=== PATIENT | female | born 1945 | race Caucasian/White ===

== ENCOUNTER 2023-07-06 08:09 | Outpatient (OUT) | payer MEDICARE, SELFPAY ==
--- NOTE | 2023-07-06 08:27 | CA_ITS ---
Patient: BLAISE JARA Exam Date: 07/06/2023 : 1945 Gender:F Ordering : CRYSTAL COOL Admission #: [id number] Family : Order #: [id number] CLICK HERE TO VIEW EXAM ECHOCARDIOGRAM REPORT PROCEDURE: CA ECHO DOPPLER COMPLETE INDICATIONS: pre op COMPARISON: None. DESCRIPTION: COMPLETE ECHOCARDIOGRAM Real-time transthoracic echocardiography with 2D, M-mode, spectral and color flow Doppler performed. QUALITY: Technical quality was good. LEFT VENTRICLE: Normal chamber size. Normal left ventricular wall thickness. LV EF: Global left ventricular systolic function is normal. Calculated left ventricular ejection fraction is 59% no significant wall motion abnormalities. DIASTOLIC: Unable to assess degree of diastolic dysfunction. ATRIAL SEPTUM: Inadequately seen. LEFT ATRIUM: Severe dilatation. RIGHT ATRIUM: Severe dilatation. RIGHT VENTRICLE: Normal chamber size. Normal right ventricular systolic function. TRICUSPID VALVE: Normal mobility and thickness. Moderate to severe regurgitation. Moderate pulmonary hypertension. RVSP 59mmHG MITRAL VALVE: Normal mobility and thickness. No evidence of mitral valve stenosis. Mild mitral annular calcification. Moderate mitral regurgitation. AORTIC VALVE: Normal trileaflet appearance. Moderately calcified aortic valve. Doppler velocity suggests no significant aortic valve stenosis. DVI and aortic valve area suggests mild aortic stenosis. No aortic regurgitation. AORTIC ROOT: Normal diameter and appearance. PULMONIC VALVE: Normal thickness and mobility. No stenosis. No regurgitation. PERICARDIUM: No evidence of pericardial effusion. IVC: Normal size with partial collapse. CONCLUSION: 1. Global left ventricular systolic function is normal; visually estimated ejection fraction is 60 to 65% 2. The right ventricle is normal size and systolic function 3. Severe biatrial enlargement 4. Moderate to severe tricuspid regurgitation 5. Moderately elevated right ventricular systolic pressure; RVSP 59 mmHg 6. Moderate mitral regurgitation 7. Mild aortic valve stenosis Adult Echocardiography Procedure Report Left Ventricle LVEDD (3.7 - 5.6 cm): 4.75 cm LVESD (2.2 - 4.0 cm): 3.40 cm LVIVS thickness (0.6 - 1.2 cm): 1.04 cm LVPW thickness (0.5 - 1.0 cm): 1.03 cm e': 0.14 m/s E - e': 9.16 LVOT Max Gradient: 1.58 mm[Hg] LVOT Area (cm2): 0.63 m/s Peak Velocity (LVOT): 0.63 m/s Mean Velocity (LVOT): 0.41 m/s LVOT Diameter 1.94 cm Left Ventricular Ejection Fraction: 59.28 % Left Atrium LA Volume Index (2D A2C): 66.92 ml/m2 Left Atrium Systolic Dimension: 4.57 cm Mitral Valve MV E to A Ratio: 3.16 Mitral Valve A-Wave Peak Velocity: 0.41 m/s Mitral Valve E-Wave Peak Velocity: 1.30 m/s Right Ventricle RV Internal Diastolic Dimension: 3.27 cm Aorta AO Root Diam: 3.04 cm Aortic Valve AoV Area (Peak Kameron): 1.18 cm2, 1.18 cm2 AoV Area (VTI): 1.29 cm2, 1.29 cm2 Peak Velocity(Antegrade Flow): 1.58 m/s Peak Gradient(Antegrade Flow): 9.94 mm[Hg] Mean Velocity(Antegrade Flow): 1.08 m/s Mean Gradient(Antegrade Flow): 5.16 mm[Hg] Velocity Time Integral: 30.60 cm Tricuspid Valve Peak Velocity (Regurgitant Flow): 3.17 m/s, 3.30 m/s, 3.57 m/s, 3.66 m/s Pulmonic Valve Mean Gradient: 1.81 mm[Hg], 1.90 mm[Hg] Mean Velocity: 0.63 m/s, 0.64 m/s Peak Velocity: 0.96 m/s, 0.93 m/s Peak Gradient: 3.55 mm[Hg], 3.86 mm[Hg], 3.43 mm[Hg] Right Atrium Right Atrium Systolic Pressure: 89.01 ml, 89.01 ml Dictated by: Xuan Alex M.D. on 07/06/2023 at 14:27 Approved by: Xuan Alex M.D. on 07/06/2023 at 14:34
--- NOTE | 2023-07-06 08:30 | NM_ITS ---
Patient: BLAISE JARA Exam Date: 07/06/2023 : 1945 Gender:F Ordering : Non-Staff Physician Admission #: [id number] Family : DR Gustabo Cook . Order #: [id number] CLICK HERE TO VIEW EXAM RADIOLOGY REPORT PROCEDURE: NM JAZLYN PERF SPECT REST STR COMPARISON: None. INDICATIONS: PRE PROCEDURE CARDIOVASCULAR EXAM TECHNIQUE: Exam Description: Stress/Rest one day protocol gated SPECT Rest Imagin.2 mCi Tc-99m Cardiolite IV on 07/06/2023 Stress Imaging 29.8 mCi Tc-99m Cardiolite IV on 07/06/2023 Exercise Protocol: 0.4 mg Lexiscan given IV Heart Rate (bpm): Rest: 93 Max: 116 PMHR: 80 Blood Pressure: Rest: 145/86 Max: 168/114 Symptoms: Rest and peak stress ECG findings were normal and the exercise portion of the study was normal per attending physician Dr. Alex . For more details please see separate cardiac stress test report. FINDINGS: QUALITY OF STUDY: Good. PERFUSION DEFECT: LOCATION: Mid-anterior. SIZE: Small (1-2 segments). SEVERITY: Mild. TYPE: Persistent. WALL MOTION: Normal. LV SIZE: Normal. 44 mL. TID / TCD: None; 0.8 LVEF: Normal. Calculated EF 77%. SUMMARY: Myocardial perfusion imaging study has ABNORMAL findings. CONCLUSION: 1. Small size mild severity fixed defect in the mid anterior wall possibly breast attenuation artifact. 2. No reversible ischemia 3. Normal exercise test Dictated by: River Schafer MD on 07/08/2023 at 07:59 Approved by: River Schafer MD on 07/08/2023 at 08:01
[2023-07-06] MEDS: REGADENOSON 0.4 MG/5 ML SYRINGE IV (10:55)
--- NOTE | 2023-07-07 | PCN_ITS ---
CARDIAC STRESS TEST Requesting Physician:? Procedure Date:? 07/07/2023 INDICATION:? Preoperative evaluation. METHOD:? After risks, benefits and alternatives were explained, written informed consent was obtained.? The patient was brought to the stress lab in a resting and fasting state.? She was connected to the appropriate hemodynamic and electrocardiographic monitoring. Lexiscan 0.4 mg was infused intravenously.? Technetium Cardiolite was administered per protocol.? She was transferred to the nuclear lab in a stable state for imaging.? There were no complications.? STRESS TEST INFORMATION:? HEMODYNAMICS:? Resting heart rate was 93 beats per minute, increasing to a maximum of 110 beats per minute. Resting blood pressure was 145/86, with a maximum of 168/114.? The patient reported no symptoms. ELECTROCARDIOGRAPHY:? Resting EKG:? Atrial fibrillation, 85 beats per minute, RSR pattern in V1, non- specific ST-T wave changes.? Abnormal resting EKG. During infusion and recovery:? No significant ST-T wave changes are noted.? No significant arrhythmias are seen.? FINAL IMPRESSIONS: 1.? No ischemic EKG changes seen on Lexiscan Pharmacological Stress Test. 2.? Nuclear images are to be read, interpreted and reported in a separate dictation. RAVI
== END 2023-07-06 08:10 | disposition home or self-care (01) ==
PROVIDERS: PCP Family Medicine
DX: Z01.818 Encounter for other preprocedural examination (principal)
CPT/HCPCS: 78452; 93017; 93306; A9500; J2785

== ENCOUNTER 2023-08-10 13:49 | Outpatient (OUT) | payer MEDICARE, SELFPAY ==
[2023-08-10 14:28] LABS: Anion Gap 11.3; BUN Creatinine Ratio 22.4; Calcium 8.8 mg/dL (8.5-10.1); Carbon Dioxide 31.5 mmol/L (21.0-32.0); Chloride 97 mmol/L (98-107); Estimated GFR (African America >60 (>=60); Estimated GFR (Non-African Ame 55 (>=60); Glucose 95 mg/dL (74-106); Potassium 3.8 mmol/L (3.5-5.1); Sodium 136 mmol/L (136-145)
== END 2023-08-10 13:50 | disposition home or self-care (01) ==
LOC: LAB 13:49
PROVIDERS: PCP Family Medicine; Visit Provider Internal Medicine Cardiovascular Disease
DX: I34.0 Nonrheumatic mitral (valve) insufficiency (principal)
CPT/HCPCS: 36415; 80048

== ENCOUNTER 2023-10-28 12:56 | Outpatient (OUT) | payer MEDICARE, SELFPAY ==
--- OUTSIDE RECORDS SUMMARY | 2023-10-28 13:18 | XMS_ITS | CCD ---
Author Name Unknown Address [address] [place] [address] Organization [facility] Care Team Providers Care Material Distributor Name Role Phone REQUEST, DR NONE LISTED Primary Care Unavaila jeimy WILSON, DR RADER Admitting Unavailable KATIE, DR RADER Consulting Unavailable KATIE, DR RADER Attending Unavailable HAY, DR VALENTINO Consulting Unavailable NEFCY, AMANDA Consulting Unavailable SISTER, JENIFFER Consulting Unavailable CRYSTAL BENTON Attending Unavailable ANGEL SERNA Attending Unavailable CRYSTAL BENTON Attending Unavailable Allergies Allergy Classification Reported Allergen(s) Allergy Type Date of Onset Reaction(s) Facility (1 source) Penicillin Drug Allergy 10-14-2022 [facility] Repository (1 source) Penicillin; Translations: [PENICILLIN G] Drug Allergy 04-13-2023 [facility] Rep[facility] Problems Problem Classification Problem Date Documented Da te Episodic/Chronic Cardiac dysrhythmias (3 sources) Unspecified atrial fibrillation; Translations: [UNSPECIFIED ATRIAL FIBRILLATION] Onset: 10-25-2022 Chronic Cardiac dysrhythmias (1 source) Tachycardia, unspecified; Translations: [TACHYCARDIA UNSPECIFIED] Onset: 10-25-2022 Episodic Congestive heart failure; nonhypertensive (5 sources) Acute combined systolic (congestive) and diastolic (congestive) heart failure; Translations: [Chronic diastolic (congestive) heart failure] Onset: 10-25-2022 Chronic Esophageal disorders (1 source) Gastro-esophageal reflux disease without esophagitis; Translations: [GERD WITHOUT ESOPHAGITIS] Onset: 10-25-2022 Chronic Essential hypertension (2 sources) Essential (primary) hypertension; Translations: [Essential (primary) hypertension] Onset: 08-01-2023 Chronic Genitourinary symptoms and ill-defined conditions (1 source) Unspecified abnormal findings in urine; Translations: [UNSPECIFIED ABNORMAL FINDINGS URINE] Onset: 10-25-2022 Episodic Heart valve disorders (2 sources) Nonrheumatic mitral (valve) insufficiency; Translations: [Nonrheumatic mitral (valve) insufficiency] Onset: 08-01-2023 Chronic Menopausal disorders (1 source) Hormone replacement therapy; Translations: [HORMONE REPLACEMENT THERAPY] Onset: 10-25-2022 Episodic Osteoarthritis (1 source) Unspecified osteoarthritis, unspecified site; Translations: [UNSPECIFIED OSTEOARTHRITIS UNS SITE] Onset: 10-25-2022 Chronic Other acquired deformities (1 source) Unspecified kyphosis, site unspecified; Translations: [UNS KYPHOSIS SITE UNSPECIFIED] Onset: 10-25-2022 Chronic Other aftercare (1 source) Other penitentiary (current) drug therapy; Translations: [OTH HALFWAY CURRENT DRUG THERAPY] Onset: 10-25-2022 Episodic Other aftercare (1 source) senior living (current) use of anticoagulants; Translations: [HALFWAY CURRNT USE ANTICOAGULANTS] Onset: 10-25-2022 Episodic Other lower respiratory disease (1 source) Dyspnea, unspecified; Translations: [DYSPNEA UNSPECIFIED] Onset: 10-25-2022 Episodic Other nervous system disorders (1 source) Other chronic pain; Translations: [OTHER CHRONIC PAIN] Onset: 10-25-2022 Chronic Pulmonary heart disease (2 sources) Pulmonary hypertension, unspecified; Translations: [Pulmonary hypertension, unspecified] Onset: 08-01-2023 Chronic Residual codes; unclassified (3 sources) Localized edema; Translations: [LOCALIZED EDEMA] Onset: 10-14-2022 Episodic Residual codes; unclassified (1 source) Altered mental status, unspecified; Translations: [ALTERED MENTAL STATUS UNSPECIFIED] Onset: 10-25-2022 Episodic Respiratory failure; insufficiency; arrest (adult) (1 source) Dependence on supplemental oxygen; Translations: [DEPENDENCE ON SUPPLEMENTAL OXYGEN] Onset: 10-25-2022 Chronic Screening and history of mental health and substance abuse codes (1 source) Personal history of nicotine dependence; Translations: [PERSONAL HISTORY OF NICOTINE DEPEND] Onset: 10-25-2022 Episodic Unclassified (1 source) CONTACT W/AND (SUSP) EXPOS COVID-19; Translations: [CONTACT W/AND (SUSP) EXPOS COVID-19] Onset: 10-25-2022 Unclassified (2 sources) Establish Care; Translations: [Establish Care] Onset: 05-02-2023 Results Test Name Value Interpretation Reference Range Facility 36on 08-24-2023 36 How much is her weight down based on her home scale? Just clarifying because all scales can slightly vary. Please also make sure she gets a BMP and BNP before her appt on 09/02/23. Thanks [facility] Prep for Procedureon 023 Prep for Procedure [id number] Blaise Toure 1945 Date Provider Department Transfer 08/17/2023 ANGEL TIJERINA ROXANNE Steven . No family history on file [facility] 37on 08-16-2023 37 *Increase lasix to 80mg daily (2 tablets) *Weigh yourself daily. Write down your weights. We will call you in 1 week for readings. Bring in your readings to your next appt. *Watch your fluid intake. Try to not drink more than 2 liters a day. *Eat a low sodium diet. [facility] Office Visiton 08-16-2023 Follow-up visit [id number] Blaise Toure 1945 Date Provider Department Transfer 08/16/2023 ANGEL TIJERINA [facility] No family history on file Level of Service:10155 UT OFFICE/OUTPATIENT ESTABLISHED MOD MDM 30-39 MIN Reason for Visit and Comments: Congestive Heart Failure [127] [facility] Office Visiton 08-01-2023 Follow-up visit [id number] Blaise Toure 1945 Provider [facility] No family history on file Level of Service:80138 UT OFFICE/OUTPATIENT ESTABLISHED MOD MDM 30-39 MIN [facility] Office Visiton 05-02-2023 Follow-up visit [id number] Blaise Toure 1945 Date Provider Department Transfer 05/02/2023 CRYSTAL OCONNELL Hos No family history on file Level of Service:43637 UT OFFICE/OUTPATIENT NEW MODERATE MDM 45-59 MINUTES Reason for Visit and Comments: Establish Care [42] - Surgical clearance (knee surgery - no date yet) [facility] CBC AUTO DIFFon 10-15-2022 BASO # 0.1 103/ul Normal 0.0-0.1 [facility] Comment on above: Performed By: #### C BC #### [facility] [address] [address] [address] Mahesh Bauer Basophils/100 WBC (Bld) 1.1 % Normal 0.2-2.0 [facility] Comment on above: Performed By: #### C BC #### [facility] [address] [address] [address] Mahesh Buaer EO # 0.1 103/ul Normal 0.0-0.7 [facility] Comment on above: Performed By: #### C BC #### [facility] [address] [place] [address] Dr. Mahesh Bauer Eosinophils/100 WBC (Bld) 1.6 % Normal 0.9-7.0 [facility] Comment on above: Performed By: #### C BC #### [facility] [address] [place] [address] Dr. Mahesh Bauer Erythrocyte distribution width (RBC) [Ratio] 13.6 % Normal 11.0-15.0 [facility] Comment on above: Performed By: #### C BC #### [facility] [address] [place] [address] Dr. Mahesh Bauer Hematocrit (Bld) [Volume fraction] 43.3 % Normal 36.0-48.0 [facility] Comment on above: Performed By: #### C BC #### [facility] [address] [address] [address] Mahesh Bauer Hemoglobin (Bld) [Mass/Vol] 12.9 g/dL Normal 12.0-16.0 [facility] Comment on above: Performed By: #### C BC #### [facility] [address] [place] [address] Dr. Mahesh Bauer IG # 0.03 10e3/ul Normal 0.00-0.03 [facility] Comment on above: Performed By: #### C BC #### [facility] [address] [place] [address] Dr. Mahesh Bauer IG % 0.3 % Normal 0.0-0.5 [facility] Comment on above: Performed By: #### C BC #### [facility] [address] [place] [address] Dr. Mahesh Bauer LYMPH # 1.8 103/ul Normal 1.2-3.8 [facility] Comment on above: Performed By: #### C BC #### [facility] [address] [place] [address] Dr. Mahesh Bauer Lymphocytes/100 WBC (Bld) 20.1 % Critically low 20.5-60.0 [facility] Comment on above: Performed By: #### C BC #### [facility] [address] [place] [address] Dr. Mahesh Bauer MANUAL DIFF REQ NO Normal [facility] Comment on above: Performed By: #### C BC #### [facility] [address] [place] [address] Dr. Mahesh Bauer MCH (RBC) [Entitic mass] 29.7 pg Normal 26.7-34.0 [facility] Comment on above: Performed By: #### C BC #### [facility] [address] [place] [address] Dr. Mahesh Bauer MCHC (RBC) [Mass/Vol] 29.8 g/dL Critically low 29.9-35.2 [facility] Comment on above: Performed By: #### C BC #### [facility] [address] [place] [address] Dr. Mahesh Bauer MCV (RBC) [Entitic vol] 99.5 fL Critically high 81.0-99.0 [facility] Comment on above: Performed By: #### C BC #### [facility] [address] [place] [address] Dr. Mahesh Bauer MONO # 1.0 103/ul Critically high 0.3-0.8 [facility] Comment on above: Performed By: #### C BC #### [facility] [address] [place] [address] Dr. Mahesh Bauer Monocytes/100 WBC (Bld) 10.8 % Normal 1.7-12.0 [facility] Comment on above: Performed By: #### C BC #### [facility] [address] [place] [address] Dr. Mahesh Bauer NEUT # 5.9 103/ul Normal 1.4-6.5 [facility] Comment on above: Performed By: #### C BC #### [facility] [address] [place] [address] Dr. Mahesh Bauer Neutrophils/100 WBC (Bld) 66.1 % Normal 43.0-75.0 [facility] Comment on above: Performed By: #### C BC #### [facility] [address] [place] [address] Dr. Mahesh Bauer Platelet mean volume (Bld) [Entitic vol] 9.2 fL Critically low 9.5-13.5 [facility] Comment on above: Performed By: #### C BC #### [facility] [address] [place] [address] Dr. Mahesh Bauer PLT 283 103/ul Normal 150-450 [facility] Comment on above: Performed By: #### C BC #### [facility] [address] [place] [address] Dr. Mahesh Bauer RBC 4.35 106/ul Normal 4.20-5.40 [facility] Comment on above: Performed By: #### C BC #### [facility] [address] [place] [address] Dr. Mahesh Bauer WBC 8.9 103/ul Normal 4.0-11.0 [facility] Comment on above: Performed By: #### C BC #### [facility] [address] [place] [address] Dr. Mahesh Bauer ECHOCARDIO M/2D COMPLETEon 0 10-15-2022 ECHOCARDIO M/2D COMPLETE Patient: BLAISE TOURE Exam Date: 10/15/2022 : 1945 Gender:F Ordering : DR PRASANTH WILSON . Admission #: [id number] Family : Order #: [id number] CLICK HERE TO VIEW EXAM ECHOCARDIOGRAM REPORT PROCEDURE: CARDIO PULMONARY ECHOCARDIO M/2D COMP INDICATIONS: Congestive heart failure, atrial fibrillation COMPARISON: None. DESCRIPTION: COMPLETE ECHOCARDIOGRAM Real-time transthoracic echocardiography with 2D, M-mode, spectral and color flow Doppler performed. QUALITY: Technical quality was good. 59 181# BP 136/72 LEFT VENTRICLE: Normal chamber size. Mild concentric left ventricular hypertrophy. Normal systolic function. LV EF: Normal left ventricular ejection fraction, (>55%). DIASTOLIC: Not adequately assessed due to heart rhythm. ATRIAL SEPTUM: Visually appears intact. LEFT ATRIUM: Severe dilatation. RIGHT ATRIUM: Severe dilatation. RIGHT VENTRICLE: Mild dilatation. Normal systolic function. TRICUSPID VALVE: Normal mobility and thickness. No stenosis with moderate regurgitation. Doppler studies reveal mildly (35-45) elevated right sided pressures. RVSP is 43 mmHg MITRAL VALVE: Normal mobility and thickness. No evidence of mitral valve stenosis. Mild mitral annular calcification. Moderate mitral regurgitation. AORTIC VALVE: Normal trileaflet appearance. Mildly calcified aortic valve. Mildly diminished mobility. Doppler velocity suggests mild aortic valve stenosis. DVI 0.5, BART 1.9 [id number] aortic regurgitation. AORTIC ROOT: Normal diameter and appearance. PULMONIC VALVE: Normal thickness and mobility. No stenosis. No regurgitation. PERICARDIUM: Small posterior pericardial effusion. IVC: IVC is normal in size, does not collapse. PLEURA: CONCLUSION: 1. Mild concentric left ventricular hypertrophy with normal systolic function. LVEF is 55 to 60%. 2. Mildly dilated right ventricle with normal systolic function. 3. Severe biatrial dilatation. 4. Moderate mitral and tricuspid regurgitation. 5. Mildly elevated right-sided pressures. 6. Small posterior pericardial effusion. Adult Echocardiography Procedure Report Left Ventricle LVEDD (3.7 - 5.6 cm): 4.50 cm LVESD (2.2 - 4.0 cm): 3.10 cm LVIVS thickness (0.6 - 1.2 cm): 1.07 cm LVPW thickness (0.5 - 1.0 cm): 0.98 cm LVOT Max Gradient: 1.96 mm[Hg], 2.23 mm[Hg], 1.96 mm[Hg], 2.23 mm[Hg] Peak Velocity (LVOT): 0.70 m/s, 0.75 m/s, 0.70 m/s, 0.75 m/s Mean Velocity (LVOT): 0.55 m/s, 0.54 m/s, 0.55 m/s, 0.54 m/s LVOT Diameter 2.16 cm Left Ventricular Ejection Fraction: 55-60 % Left Atrium LA Volume Index (2D A2C): 88.51 ml, 88.51 ml Left Atrium Systolic Dimension: 4.88 cm Mitral Valve Mitral Valve E-Wave Peak Velocity: 1.33 m/s, 1.24 m/s Right Ventricle Aorta AO Root Diam: 2.87 cm Aortic Valve AoV Area (Peak Kameron): 1.69 cm2, 1.66 cm2, 1.68 cm2, 1.66 cm2 AoV Area (VTI): 1.85 cm2, 2.05 cm2, 1.69 cm2, 1.92 cm2 Peak Velocity(Antegrade Flow): 1.54 m/s, 1.63 m/s, 1.54 m/s Peak Gradient(Antegrade Flow): 9.51 mm[Hg], 10.63 mm[Hg], 9.51 mm[Hg] Mean Velocity(Antegrade Flow): 1.03 m/s, 1.13 m/s, 1.09 m/s Mean Gradient(Antegrade Flow): 4.99 mm[Hg], 5.94 mm[Hg], 5.51 mm[Hg] Velocity Time Integral: 24.19 cm, 26.85 cm, 25.82 cm Tricuspid Valve Peak Velocity (Regurgitant Flow): 2.75 m/s, 2.95 m/s Pulmonic Valve Peak Velocity: 0.94 m/s, 0.82 m/s Peak Gradient: 3.55 mm[Hg], 2.72 mm[Hg] Right Atrium Right Atrium Systolic Pressure: 63.18 ml, 63.18 ml Dictated by: Mateus Henning M.D. on 10/15/2022 at 17:12 Approved by: Mateus Henning M.D. on 10/15/2022 at 17:16 Normal [facility] PROF CHEM 8 (BAS METB)on Anion gap [Moles/Vol] 10.8 mmol/L Normal [facility] Comment on above: Performed By: #### BRITT BONILLARO #### [facility] [address] [address] [address] Mahesh Bauer Calcium [Mass/Vol] 9.0 mg/dL Normal 8.5-10.1 [facility] Comment on above: Performed By: #### Alirio WIGGINS UMICRO #### [facility] [address] [address] [address] Mahesh Bauer Chloride [Moles/Vol] 95 mmol/L Critically low 98-107 [facility] Comment on above: Performed By: #### Alirio WIGGINS UMTIMOTHYRO #### [facility] [address] [address] [address] Mahesh Bauer CO2 [Moles/Vol] 34.0 mmol/L Critically high 21.0-32.0 [facility] Comment on above: Performed By: #### RBITT BONILLARO #### [facility] [address] [address] [address] Mahesh Bauer Creatinine [Mass/Vol] 0.86 mg/dL Normal 0.55-1.02 [facility] Comment on above: Performed By: #### BRITT BONILLARO #### [facility] [address] [address] [address] Mahesh Bauer EGFR-AF PUERTO RICAN >60 Normal >=60 [facility] Comment on above: Performed By: #### BRITT BONILLARO #### [facility] [address] [place] [address] Dr. Mahesh Bauer EGFR-NON AF PUERTO RICAN >60 Normal >=60 [facility] Comment on above: Performed By: #### BRITT BONILLARO #### [facility] [address] [address] [address] Mahesh Bauer Glucose [Mass/Vol] 100 mg/dL Normal 74-106 [facility] Comment on above: Performed By: #### Alirio WIGGINS UMTIMOTHYRO #### [facility] [address] [place] [address] Dr. Mahesh Bauer Potassium [Moles/Vol] 2.8 mmol/L Critically low 3.5-5.1 [facility] Comment on above: Performed By: #### PONCHO BONILLA #### [facility] [address] [place] [address] Dr. Mahesh Bauer Sodium [Moles/Vol] 137 mmol/L Normal 136-145 [facility] Comment on above: Performed By: #### PONCHO BONILLA #### [facility] [address] [place] [address] Dr. Mahesh Bauer Urea nitrogen [Mass/Vol] 18.0 mg/dL Normal 7.0-18.0 [facility] Comment on above: Performed By: #### PONCHO BONILLA #### [facility] [address] [place] [address] Dr. Mahesh Bauer Urea nitrogen/Creatinine [Mass ratio] 20.9 mg/mg Normal [facility] Comment on above: Performed By: #### PONCHO BONILLA #### [facility] [address] [place] [address] Dr. Mahesh Bauer T4on 10-15-2022 T4 [Mass/Vol] 7.90 ug/dL Normal 4.80-13.90 [facility] Comment on above: Performed By: #### PONCHO BONILLA #### [facility] [address] [place] [address] Dr. Mahesh Bauer TSHon 10-15-2022 TSH 4.581 uIU/mL Critically high 0.358-3.740 [facility] Comment on above: Performed By: #### BRITT BONILLARO #### [facility] [address] [place] [address] Dr. Mahesh Bauer BNPon 10-14-2022 Natriuretic peptide B (Bld) [Mass/Vol] 1439.0 pg/mL Normal <=1,800.0 [facility] Comment on above: Performed By: #### C MP, HSTROPN, BNP #### [facility] [address] [place] [address] Dr. Mahesh Bauer CBC AUTO DIFFon 10-14-2022 BASO # 0.1 103/ul Normal 0.0-0.1 [facility] Comment on above: Performed By: #### C BC #### [facility] [address] [place] [address] Dr. Mahesh Bauer Basophils/100 WBC (Bld) 0.9 % Normal 0.2-2.0 [facility] Comment on above: Performed By: #### C BC #### [facility] [address] [address] [address] Mahesh Bauer EO # 0.1 103/ul Normal 0.0-0.7 [facility] Comment on above: Performed By: #### C BC #### [facility] [address] [place] [address] Dr. Mahesh Bauer Eosinophils/100 WBC (Bld) 0.8 % Critically low 0.9-7.0 [facility] Comment on above: Performed By: #### C BC #### [facility] [address] [place] [address] Dr. Mahesh Bauer Erythrocyte distribution width (RBC) [Ratio] 13.7 % Normal 11.0-15.0 [facility] Comment on above: Performed By: #### C BC #### [facility] [address] [place] [address] Dr. Mahesh Bauer Hematocrit (Bld) [Volume fraction] 46.7 % Normal 36.0-48.0 [facility] Comment on above: Performed By: #### C BC #### [facility] [address] [place] [address] Dr. Mahesh Bauer Hemoglobin (Bld) [Mass/Vol] 13.8 g/dL Normal 12.0-16.0 [facility] Comment on above: Performed By: #### C BC #### [facility] [address] [place] [address] Dr. Mahesh Bauer IG # 0.05 10e3/ul Critically high 0.00-0.03 [facility] Comment on above: Performed By: #### C BC #### [facility] [address] [place] [address] Dr. Mahesh Bauer IG % 0.5 % Normal 0.0-0.5 [facility] Comment on above: Performed By: #### C BC #### [facility] [address] [place] [address] Dr. Mahesh Bauer LYMPH # 1.7 103/ul Normal 1.2-3.8 [facility] Comment on above: Performed By: #### C BC #### [facility] [address] [place] [address] Dr. Mahesh Bauer Lymphocytes/100 WBC (Bld) 16.2 % Critically low 20.5-60.0 [facility] Comment on above: Performed By: #### C BC #### [facility] [address] [place] [address] Dr. Mahesh Bauer MANUAL DIFF REQ NO Normal [facility] Comment on above: Performed By: #### C BC #### [facility] [address] [place] [address] Dr. Mahesh Bauer MCH (RBC) [Entitic mass] 29.3 pg Normal 26.7-34.0 [facility] Comment on above: Performed By: #### C BC #### [facility] [address] [place] [address] Dr. Mahesh Bauer MCHC (RBC) [Mass/Vol] 29.6 g/dL Critically low 29.9-35.2 [facility] Comment on above: Performed By: #### C BC #### [facility] [address] [place] [address] Dr. Mahesh Bauer MCV (RBC) [Entitic vol] 99.2 fL Critically high 81.0-99.0 [facility] Comment on above: Performed By: #### C BC #### [facility] [address] [place] [address] Dr. Mahesh Bauer MONO # 0.8 103/ul Normal 0.3-0.8 [facility] Comment on above: Performed By: #### C BC #### [facility] [address] [place] [address] Dr. Mahesh Bauer Monocytes/100 WBC (Bld) 7.5 % Normal 1.7-12.0 [facility] Comment on above: Performed By: #### C BC #### [facility] [address] [place] [address] Dr. Mahesh Bauer NEUT # 7.8 103/ul Critically high 1.4-6.5 [facility] Comment on above: Performed By: #### C BC #### [facility] [address] [place] [address] Dr. Mahesh Bauer Neutrophils/100 WBC (Bld) 74.1 % Normal 43.0-75.0 [facility] Comment on above: Performed By: #### C BC #### [facility] [address] [place] [address] Dr. Mahesh Bauer Platelet mean volume (Bld) [Entitic vol] 9.5 fL Normal 9.5-13.5 [facility] Comment on above: Performed By: #### C BC #### [facility] [address] [place] [address] Dr. Mahesh Bauer PLT 291 103/ul Normal 150-450 [facility] Comment on above: Performed By: #### C BC #### [facility] [address] [place] [address] Dr. Mahesh Bauer RBC 4.71 106/ul Normal 4.20-5.40 [facility] Comment on above: Performed By: #### C BC #### [facility] [address] [place] [address] Dr. Mahesh Bauer WBC 10.5 103/ul Normal 4.0-11.0 [facility] Comment on above: Performed By: #### C BC #### [facility] [address] [place] [address] Dr. Mahesh Bauer CULTURE URINEon 10-14-2022 CULTURE URINE Culture Observations : NO GROWTH. Normal [facility] Comment on above: Performed By: #### U RCX #### [facility] [address] [place] [address] Dr. Mahesh Bauer [facility] PCR [facility]on 09-20 SARS-CoV-2 (COVID-19) RNA MK+probe Ql (Unsp spec) Not detected Normal NOT DETECTED [facility] Comment on above: Result Comment: When diagnostic testing is negative, the possibility of a false negative should be considered in the context of a patient's recent exposures and the presence of clinical signs and symptoms consistent with SARS-CoV-2. This test is not yet approved or cleared by the [place] FDA. When there are no FDA-approved or cleared tests available, and other criteria are met, FDA can make tests available under an emergency access mechanism called an Emergency Use Authorization (EUA). The EUA for this test is supported by the [place] of Health and Human Service's declaration that circumstances exist to justify the emergency use of in vitro diagnostics for the detection and/or diagnosis of the virus that causes COVID-19. This EUA will remain in effect for the duration of the COVID-19 declaration justifying emergency of IVDs, unless it is terminated or revoked by the FDA (after which the test may no longer be used). Performed By: #### PONCHO BONILLA #### [facility] [address] [place] [address] Dr. Mahesh Bauer ER URINE PROFILEon 3 Bilirubin Ql (U) SMALL Abnormal NEGATIVE [facility] Comment on above: Performed By: #### PONCHO BONILLA #### [facility] [address] [place] [address] Dr. Mahesh Bauer Clarity (U) SL CLOUDY Abnormal CLEAR [facility] Comment on above: Performed By: #### PONCHO BONILLA #### [facility] [address] [place] [address] Dr. Mahesh Bauer Color (U) YELLOW Normal YELLOW [facility] Comment on above: Performed By: #### PONCHO BONILLA #### [facility] [address] [place] [address] Dr. Mahesh Bauer ERUAHD A micrscopic examination will be performed if indicated. Normal [facility] Comment on above: Performed By: #### PONCHO BONILLA #### [facility] [address] [place] [address] Dr. Mahesh Bauer Glucose Ql (U) Negative Normal NEGATIVE [facility] Comment on above: Performed By: #### Alirio WIGGINS UMICRO #### [facility] [address] [address] [address] Mahesh Bauer Hemoglobin Ql (U) LARGE Abnormal NEGATIVE [facility] Comment on above: Performed By: #### Alirio WIGGINS, UMICRO #### [facility] [address] [address] [address] Mahesh Bauer Ketones Ql (U) Negative Normal NEGATIVE [facility] Comment on above: Performed By: #### Alirio WIGGINS UMICRO #### [facility] [address] [place] [address] Dr. Mahesh Bauer LEUKOCYTES Negative Normal NEGATIVE [facility] Comment on above: Performed By: #### Alirio WIGGINS UMICRO #### [facility] [address] [place] [address] Dr. Mahesh Bauer Nitrite Ql (U) Negative Normal NEGATIVE [facility] Comment on above: Performed By: #### Alirio WIGGINS UMICRO #### [facility] [address] [place] [address] Dr. Mahesh Bauer pH (U) 5.5 [pH] Normal 5-9 [facility] Comment on above: Performed By: #### Alirio WIGGINS UMICRO #### [facility] [address] [place] [address] Dr. Mahesh Bauer SPEC GRAVITY 1.025 Normal 1.005-<=1.025 [facility] Comment on above: Performed By: #### Alirio WIGGINS UMICRO #### [facility] [address] [place] [address] Dr. Mahesh Bauer UA PROTEIN Negative Normal NEGATIVE/ TRACE [facility] Comment on above: Performed By: #### Alirio WIGGINS UMICRO #### [facility] [address] [place] [address] Dr. Mahesh Bauer UR MICRO IND INDICATED Normal [facility] Comment on above: Performed By: #### Alirio WIGGINS UMICRO #### [facility] [address] [place] [address] Dr. Mahesh Bauer Urobilinogen Qn (U) 1.0 {Terrie'U}/dL Normal 0.2 - 1. 0 [facility] Comment on above: Performed By: #### E PONCHO WIGGINS #### [facility] [address] [place] [address] Dr. Mahesh Bauer PROF 14(COMP METB)on 023 Albumin [Mass/Vol] 3.7 g/dL Normal 3.4-5.0 [facility] Comment on above: Performed By: #### C MP, HSTROPN, BNP #### [facility] [address] [place] [address] Dr. Mahesh Bauer Albumin/Globulin [Mass ratio] 0.9 {ratio} Normal [facility] Comment on above: Performed By: #### C MP, HSTROPN, BNP #### [facility] [address] [place] [address] Dr. Mahesh Bauer ALP [Catalytic activity/Vol] 85 U/L Normal 46-116 [facility] Comment on above: Performed By: #### C MP, HSTROPN, BNP #### [facility] [address] [place] [address] Dr. Mahesh Bauer ALT [Catalytic activity/Vol] 15 U/L Normal 14-59 [facility] Comment on above: Performed By: #### C MP, HSTROPN, BNP #### [facility] [address] [place] [address] Dr. Mahesh Bauer Anion gap [Moles/Vol] 12.6 mmol/L Normal [facility] Comment on above: Performed By: #### C MP, HSTROPN, BNP #### [facility] [address] [place] [address] Dr. Mahesh Bauer AST [Catalytic activity/Vol] 22 U/L Normal 15-37 [facility] Comment on above: Performed By: #### C MP, HSTROPN, BNP #### [facility] [address] [place] [address] Dr. Mahesh Bauer Bilirubin [Mass/Vol] 0.6 mg/dL Normal 0.2-1.0 [facility] Comment on above: Performed By: #### C MP, HSTROPN, BNP #### [facility] [address] [address] [address] Mahesh Bauer Calcium [Mass/Vol] 9.3 mg/dL Normal 8.5-10.1 [facility] Comment on above: Performed By: #### C MP, HSTROPN, BNP #### [facility] [address] [address] [address] Mahesh Bauer Chloride [Moles/Vol] 95 mmol/L Critically low 98-107 [facility] Comment on above: Performed By: #### C MP, HSTROPN, BNP #### [facility] [address] [address] [address] Mahesh Bauer CO2 [Moles/Vol] 32.1 mmol/L Critically high 21.0-32.0 [facility] Comment on above: Performed By: #### C MP, HSTROPN, BNP #### [facility] [address] [address] [address] Mahesh Bauer Creatinine [Mass/Vol] 1.03 mg/dL Critically high 0.55-1.02 [facility] Comment on above: Performed By: #### C MP, HSTROPN, BNP #### [facility] [address] [address] [address] Mahesh Bauer EGFR-AF PUERTO RICAN >60 Normal >=60 [facility] Comment on above: Performed By: #### C MP, HSTROPN, BNP #### [facility] [address] [address] [address] Mahesh Bauer EGFR-NON AF PUERTO RICAN 52 mL/min/1.73m2 Critically low >=60 [facility] Comment on above: Performed By: #### C MP, HSTROPN, BNP #### [facility] [address] [address] [address] Mahesh Bauer Globulin (S) [Mass/Vol] 4.1 g/dL Normal [facility] Comment on above: Performed By: #### C MP, HSTROPN, BNP #### [facility] [address] [address] [address] Mahesh Bauer Glucose [Mass/Vol] 137 mg/dL Critically high 74-106 [facility] Comment on above: Performed By: #### C MP, HSTROPN, BNP #### [facility] [address] [address] [address] Mahesh Bauer Potassium [Moles/Vol] 3.7 mmol/L Normal 3.5-5.1 [facility] Comment on above: Performed By: #### C MP, HSTROPN, BNP #### [facility] [address] [place] [address] Dr. Mahesh Bauer Protein [Mass/Vol] 7.8 g/dL Normal 6.4-8.2 [facility] Comment on above: Performed By: #### C MP, HSTROPN, BNP #### [facility] [address] [place] [address] Dr. Mahesh Bauer Sodium [Moles/Vol] 136 mmol/L Normal 136-145 [facility] Comment on above: Performed By: #### C MP, HSTROPN, BNP #### [facility] [address] [place] [address] Dr. Mahesh Bauer Urea nitrogen [Mass/Vol] 18.0 mg/dL Normal 7.0-18.0 [facility] Comment on above: Performed By: #### C MP, HSTROPN, BNP #### [facility] [address] [place] [address] Dr. Mahesh Bauer Urea nitrogen/Creatinine [Mass ratio] 17.5 mg/mg Normal [facility] Comment on above: Performed By: #### C MP, HSTROPN, BNP #### [facility] [address] [place] [address] Dr. Mahesh Bauer TROPONIN, HIGH SENSITIVITYon 10-14-2022 HSTROP 43.6 pg/mL Normal 4.0-51.3 [facility] Comment on above: Result Comment: CUT- OFF POINTS HAVE BEEN ESTABLISHED BASED ON THE FOURTH UNIVERSAL DEFINITIONS OF MYOCARDIAL INFARCTION. THE UPPER REFERENCE LIMIT (URL) OF TROPONIN, DEFINED THE 99TH PERCENTILE OF cTnI DISTRIBUTION IN A REFERENCE POPULATION, HAS BEEN CONFIRMED THE DECISION THRESHOLD FOR [place] DIAGNOSIS. Performed By: #### C MP, HSTROPN, BNP #### [facility] [address] [place] [address] Dr. Mahesh Bauer URINE MICROSCOPIC ONLYon BACTERIA TRACE Abnormal NONE SEEN [facility] Comment on above: Performed By: #### E FELICIANO, UMICRO #### [facility] [address] [place] [address] Dr. Mahesh Bauer Bacteria identified Cx Nom (U) INDICATED Normal [facility] Comment on above: Performed By: #### Alirio WIGGINS, UMICRO #### [facility] [address] [place] [address] Dr. Mahesh Bauer CAST NONE SEEN Normal NONE SEEN [facility] Comment on above: Performed By: #### Alirio WIGGINS, UMICRO #### [facility] [address] [place] [address] Dr. Mahesh Bauer Crystals LM Nom (Urine sed) NONE SEEN Normal NONE SEEN [facility] Comment on above: Performed By: #### Alirio WIGGINS UMICRO #### [facility] [address] [place] [address] Dr. Mahesh Bauer Epithelial cells LM Ql (Urine sed) FEW Abnormal NONE SEEN /RARE [facility] Comment on above: Performed By: #### Alirio WIGGINS UMICRO #### [facility] [address] [place] [address] Dr. Mahesh Bauer MUCOUS SMALL Abnormal NONE SEEN [facility] Comment on above: Performed By: #### Alirio WIGGINS UMICRO #### [facility] [address] [place] [address] Dr. Mahesh Bauer RBC 0-2 Normal 0-2 [facility] Comment on above: Performed By: #### Alirio WIGGINS, UMICRO #### [facility] [address] [place] [address] Dr. Mahesh Bauer WBC 5-10 Abnormal NONE SEEN [facility] Comment on above: Performed By: #### E PONCHO WIGGINS #### [facility] [address] [address] [address] Mahesh Bauer XR CHEST 1 Von 10-14-2022 XR CHEST 1 V EXAM: XR CHEST 1 V a t 1702 hours HISTORY: SHORTNESS OF BREATH and edema in the lower extremities. COMPARISON: None. TECHNIQUE: AP upright portable chest x-ray FINDINGS: The heart is not enlarged and there is mild prominence of the central pulmonary vasculature. No acute infiltrate, effusion or pneumothorax is identified. The osseous structures are grossly intact. IMPRESSION: Mild Central vascular congestion is noted. There is no evidence of a focal infiltrate or overt cardiac decompensation. Direct comparison with a previous study would be helpful in determining the chronicity of these findings. Electronically authenticated by: AMANDA TORRES Date: 2022-10-14 17:53 Normal [facility] Encounters Encounter Date Encounter Type Care Provider Facility Start: 08-16-2023 End: 08-16-2023 ambulatory [facility] Start: 08-01-2023 End: 08-01-2023 ambulatory [facility] Start: 08-01-2023 End: 08-01-2023 [facility] Start: 05-02-2023 End: 05-02-2023 ambulatory [facility] Start: 10-14-2022 End: 10-15-[address] TESFAYE LISTED REQUEST Facility: Payers Date Payer Category Payer Medicare [id number] 1957 Medicare [id number] 1945 Unknown [id number] Progress note 08-16-2023 Note Date & Type Note Facility 08-16-2023 Note Patient here for 2 w takotna follow up medication change. Lasix was increased to 60mg for 1 week, and spironolactone was added at last visit by Dr. Benton. She is still taking lasix 60mg daily but hasn't taken any medications yet today. Denies chest pain, palpitations, and lightheadedness. She did notice some pink in her urine recently. Says the increase in lasix has helped her LE edema but has not helped her SOB. Review of Systems Cardiovascular: Positive for dyspnea on exertion and leg swelling (improving). Respiratory: Positive for cough and shortness of breath. Hematologic/Lymphatic: Bruises/bleeds easily. Skin: Positive for color change. Musculoskeletal: Positive for arthritis, back pain and joint pain. Genitourinary: Positive for hematuria (pink). Neurological: Positive for weakness. All other systems reviewed and are negative. [facility] note 08-16-2023 Note Date & Type Note Facility 08-16-2023 Note Cardiovascular Medic [facility] SUBJECTIVE Chief Complaint Patient presents with Congestive Heart Failure Blaise Toure is a 78 y.o. female here for follow-up. Her daughter TJ accompanied her. HPI PMHx: HTN, Afib on eliquis. After her last visit her lasix was increased to 60mg daily and spironolactone 25mg daily was added. She continues to have SOB with exertion. She is only down about 1 lb since last seen. She is not watching her fluid or sodium intake. She does not weigh herself at home. She feels that her leg swelling is better but not totally gone. Denies CP, orthopnea, PND, palpitations, syncope. Patient Active Problem List Diagnosis Chronic diastolic heart failure (CMS/HCC) Paroxysmal atrial fibrillation (CMS/HCC) Nonrheumatic mitral valve regurgitation Pulmonary hypertension (CMS/HCC) Nonrheumatic tricuspid valve regurgitation Benign hypertensive heart disease with heart failure (CMS/HCC) Past Medical History: Diagnosis Date Benign hypertensive heart disease with heart failure (CMS/HCC) 08/17/2023 Chronic diastolic heart failure (CMS/HCC) 08/17/2023 Nonrheumatic mitral valve regurgitation 08/17/2023 Nonrheumatic tricuspid valve regurgitation 08/17/2023 Paroxysmal atrial fibrillation (CMS/HCC) 08/17/2023 Pulmonary hypertension (CMS/HCC) 08/17/2023 No family history on file. Social History Tobacco Use Smoking status: Former Types: Cigarettes Smokeless tobacco: Never Allergies Allergen Reactions Penicillin G Unknown ROS Cardiovascular: Positive for dyspnea on exertion and leg swelling (improving). Respiratory: Positive for cough and shortness of breath. Hematologic/Lymphatic: Bruises/bleeds easily. Skin: Positive for color change. Musculoskeletal: Positive for arthritis, back pain and joint pain. Genitourinary: Positive for hematuria (pink). Neurological: Positive for weakness. All other systems reviewed and are negative. OBJECTIVE Visit Vitals BP 136/84 (BP Location: Right arm, Patient Position: Sitting) Pulse 104 Ht 1.448 m (4' 9 ) Wt 85.3 kg (188 lb) SpO2 95% BMI 40.68 kg/m??? Smoking Status Former BSA 1.85 m??? Medications: Current Outpatient Medications: albuterol 90 mcg/actuation inhaler, inhale 2 puffs by mouth every 4 hours if needed, Disp: , Rfl: alendronate (Fosamax) 70 mg tablet, Take 70 mg by mouth in the morning., Disp: , Rfl: donepezil (Aricept) 5 mg tablet, Take 5 mg by mouth at bedtime., Disp: , Rfl: Eliquis 5 mg tablet, Take 5 mg by mouth in the morning and at bedtime., Disp: , Rfl: HYDROcodone-acetaminophen (Hampton) 5-325 mg tablet, Take 10 tablets by mouth in the morning, at noon, and at bedtime., Disp: , Rfl: levothyroxine (Synthroid, Levoxyl) 50 mcg tablet, Take 50 mcg by mouth in the morning., Disp: , Rfl: metoprolol tartrate (Lopressor) 25 mg tablet, Take 25 mg by mouth in the morning., Disp: , Rfl: omeprazole (PriLOSEC) [address] capsule, Take 40 mg by mouth in the morning., Disp: , Rfl: oxyCODONE-acetaminophen (Percocet) 10-325 mg tablet, Take 1 tablet by mouth if needed in the morning, at noon, in the evening, and at bedtime., Disp: , Rfl: potassium chloride (Klor-Con) 20 mEq packet, Take 20 mEq by mouth in the morning., Disp: , Rfl: spironolactone (Aldactone) 25 mg tablet, Take 1 tablet (25 mg) by mouth once daily as directed., Disp: 90 tablet, Rfl: 3 traZODone (Desyrel) 50 mg tablet, Take 50 mg by mouth at bedtime., Disp: , Rfl: cephalexin (Keflex) 500 mg capsule, Take 500 mg by mouth in the morning, at noon, in the evening, and at bedtime., Disp: , Rfl: furosemide (Lasix) 40 mg tablet, Take 2 tablets (80 mg) by mouth in the morning., Disp: 30 tablet, Rfl: 11 Physical Exam Vitals reviewed. Constitutional: Appearance: Normal appearance. She is obese. Comments: In wheelchair HENT: Head: Normocephalic and atraumatic. Right Ear: External ear normal. Left Ear: External ear normal. Eyes: Extraocular Movements: Extraocular movements intact. Conjunctiva/sclera: Conjunctivae normal. Pupils: Pupils are equal, round, and reactive to light. Neck: Vascular: No carotid bruit. Cardiovascular: Rate and Rhythm: Normal rate and regular rhythm. Pulses: Normal pulses. Heart sounds: Normal heart sounds. Pulmonary: Effort: Pulmonary effort is normal. Breath sounds: Normal breath sounds. Abdominal: General: Bowel sounds are normal. Palpations: Abdomen is soft. Musculoskeletal: Cervical back: Neck supple. Right lower leg: Edema present. Left lower leg: Edema present. Comments: +1 BLE edema Skin: General: Skin is warm and dry. Neurological: General: No focal deficit present. Mental Status: She is alert and oriented to person, place, and time. Psychiatric: Mood and Affect: Mood normal. Behavior: Behavior normal. Thought Content: Thought content normal. Judgment: Judgment normal. Labs: 08/10/2023 Cr 0.98, BUN 22, K 3.8, eGFR 55, Na 136 (more content not included)... [facility] 08-01-2023 Note Date & Type Note Facility 08-01-2023 Note Cardiology Clinic No te Chief Complaint: periop risk stratification HPI: Blaise Toure is a 78 y.o. female with a past medical history including HTN, Afib on eliquis. Patient was referred to cardiology clinic for perioperative restratification prior to knee replacement surgery. Unclear functional status, additional testing was performed. Lexiscan stress test was performed without any evidence of reversible ischemia. Echocardiogram was repeated, patient continues to have moderate MR and TR. Her RVSP was moderately elevated at 59 mmHg. She reports Weight Gain, Shortness of Breath and orthopnea, In addition to some lower extremity swelling. She reports adherence to her diuretic regimen Patient denies any chest pain. She denies any near-syncope or syncope. No palpitations. No bleeding complications Cardiology ROS: 10 point ROS is performed and is negative unless otherwise specified in HPI Past Medical History As per above Surgical History She has no past surgical history on file. Social History She reports that she has quit smoking. Her smoking use included cigarettes. She has never used smokeless tobacco. No history on file for alcohol use and drug use. Family History No family history on file. Medications Current Outpatient Medications on File Prior to Visit Medication Sig Dispense Refill albuterol 90 mcg/actuation inhaler inhale 2 puffs by mouth every 4 hours if needed Eliquis 5 mg tablet Take 5 mg by mouth in the morning and at bedtime. furosemide (Lasix) 40 mg tablet Take 40 mg by mouth in the morning. HYDROcodone-acetaminophen (Hampton) 5-325 mg tablet Take 10 tablets by mouth in the morning, at noon, and at bedtime. levothyroxine (Synthroid, Levoxyl) 50 mcg tablet Take 50 mcg by mouth in the morning. metoprolol tartrate (Lopressor) 25 mg tablet Take 25 mg by mouth in the morning. omeprazole (PriLOSEC) [address] capsule Take 40 mg by mouth in the morning. oxyCODONE-acetaminophen (Percocet) 10-325 mg tablet Take 1 tablet by mouth if needed in the morning, at noon, in the evening, and at bedtime. potassium chloride (Klor-Con) 20 mEq packet Take 20 mEq by mouth in the morning. traZODone (Desyrel) 50 mg tablet Take 50 mg by mouth at bedtime. alendronate (Fosamax) 70 mg tablet Take 70 mg by mouth in the morning. cephalexin (Keflex) 500 mg capsule Take 500 mg by mouth in the morning, at noon, in the evening, and at bedtime. donepezil (Aricept) 5 mg tablet Take 5 mg by mouth at bedtime. No current facility-administered medications on file prior to visit. Allergies Penicillin g Physical Exam VITAL SIGNS: BP (!) 148/91 (BP Location: Right wrist, Patient Position: Sitting) Pulse 84 Ht 1.448 m (4' 9 ) Wt 85.7 kg (189 lb) SpO2 95% BMI 40.90 kg/m??? Constitutional: Well developed, Well nourished, No acute distress, Non-toxic appearance. HENT: Normocephalic, Atraumatic, Bilateral external ears have normal appearance, Nose appears normal, nares are patent. Eyes: PERRLA, EOMI, Conjunctiva normal, No discharge. Neck: Normal range of motion, No tenderness, Supple, No stridor. No cervical lymphadenopathy noted. Cardiovascular: Normal heart rate, Normal rhythm, No murmurs, No rubs, No gallops. Thorax & Lungs: Normal breath sounds, No respiratory distress, No wheezing, No chest tenderness to palpation. Abdomen: Bowel sounds normal, Soft, Nontender, No masses, No pulsatile masses. Skin: Warm, Dry, No erythema, No rash. Back: No tenderness, No CVA tenderness. Extremities: Intact distal pulses, 1+ pitting edema, No tenderness, No cyanosis, No clubbing. Musculoskeletal: Grossly normal strength in extremities Neurologic: Alert & oriented x 3, no gross focal neurological deficits Psychiatric: Affect normal, Judgment normal, Mood normal. Impression: -Perioperative Risk stratification -Atrial fibrillation, on Eliquis -Hypertension -Moderate mitral regurgitation -Moderate tricuspid regurgitation -HFpEF, mildly decompensated -Pulmonary hypertension, suspect possibly due to volume overload Plan: -Increase Lasix to 60 mg daily for 1 week, in addition to adding spironolactone 25 mg daily. Will check BMP in 1 week -Patient to follow-up with heart failure nurse practitioner in 2-week -Repeat echocardiogram after optimization of volume status to reassess valvular dysfunction and RVSP -Recommendations regarding perioperative restratification to follow volume optimization and repeat echo -Continue Eliquis, metoprolol for atrial fibrillation -Continue current antihypertensive regimen -Optimize medical management -Aggressive risk factor modification -Plan of care discussed with patient. All questions were answered. Patient voices understanding and is agreeable with current plan. -Patient was educated on red flag symptoms. Strict return precautions were provided. Patient verbalizes understanding -Follow-up in cardiology clinic in 2 weeks, or sooner (more content not included)... [facility] 08-01-2023 Note Date & Type Note Facility 08-01-2023 Note Patient here for fol low up stress test and echo. She is up 31# since visit in Apr 2023. C/o increased LE edema and SOB. Did have an episode of epistaxis last night, which lasted about 3 minutes. Denies chest pain, lightheadedness, and palpitations. Review of Systems Constitutional: Positive for weight gain (31# since Apr 2023). Cardiovascular: Positive for dyspnea on exertion and leg swelling. Respiratory: Positive for cough and shortness of breath. Skin: Positive for color change. Musculoskeletal: Positive for arthritis and back pain. Neurological: Positive for weakness. All other systems reviewed and are negative. [facility] note 05-02-2023 Note Date & Type Note Facility 05-02-2023 Note Cardiology Clinic No te Chief Complaint: periop risk stratification HPI: Blaise Toure is a 77 y.o. female with a past medical history including HTN, Afib on eliquis. Patient was referred to cardiology clinic for perioperative restratification prior to knee replacement surgery. Patient is unable to recall much of her cardiology history. She states that she was diagnosed with atrial fibrillation, but is otherwise unable to provide much information. She reports chronic shortness of breath. She denies any chest pain. She denies any lower extremity edema, orthopnea, or paroxysmal nocturnal dyspnea. No near-syncope or syncope. She is on Eliquis for anticoagulation denies any bleeding complications. She uses a walker for mobility, and she does not recall the last time she ascended a flight of stairs or completed 2 blocks of walking on a flat surface. Her daughter states that it has been at least 10 years. Unclear functional status. Echocardiogram performed in 09/2022 demonstrates EF 55 to 60% with mildly dilated right ventricle with normal right ventricular systolic function. Patient was noted to have severe biatrial dilatation. She had moderate mitral and tricuspid regurgitation Cardiology ROS: 10 point ROS is performed and is negative unless otherwise specified in HPI Past Medical History As per above Surgical History She has no past surgical history on file. Social History She reports that she has quit smoking. Her smoking use included cigarettes. She has never used smokeless tobacco. No history on file for alcohol use and drug use. Family History No family history on file. Medications Current Outpatient Medications on File Prior to Visit Medication Sig Dispense Refill albuterol 90 mcg/actuation inhaler inhale 2 puffs by mouth every 4 hours if needed alendronate (Fosamax) 70 mg tablet Take 70 mg by mouth in the morning. cephalexin (Keflex) 500 mg capsule Take 500 mg by mouth in the morning, at noon, in the evening, and at bedtime. donepezil (Aricept) 5 mg tablet Take 5 mg by mouth at bedtime. Eliquis 5 mg tablet Take 5 mg by mouth in the morning and at bedtime. furosemide (Lasix) 40 mg tablet Take 40 mg by mouth in the morning. HYDROcodone-acetaminophen ([place]) 5-325 mg tablet Take 10 tablets by mouth in the morning, at noon, and at bedtime. levothyroxine (Synthroid, Levoxyl) 50 mcg tablet Take 50 mcg by mouth in the morning. metoprolol tartrate (Lopressor) 25 mg tablet Take 25 mg by mouth in the morning. omeprazole (PriLOSEC) [address] capsule Take 40 mg by mouth in the morning. oxyCODONE-acetaminophen (Percocet) 10-325 mg tablet Take 1 tablet by mouth if needed in the morning, at noon, in the evening, and at bedtime. potassium chloride (Klor-Con) 20 mEq packet Take 20 mEq by mouth in the morning and at bedtime. traZODone (Desyrel) 50 mg tablet Take 50 mg by mouth at bedtime. No current facility-administered medications on file prior to visit. Allergies Penicillin g Physical Exam VITAL SIGNS: BP 129/76 (BP Location: Left wrist, Patient Position: Sitting, BP Cuff Size: Adult) Pulse 75 Temp 36 ???C (96.8 ???F) Ht 1.448 m (4' 9 ) Wt 71.8 kg (158 lb 3.2 oz) SpO2 95% BMI 34.23 kg/m??? Constitutional: Well developed, Well nourished, No acute distress, Non-toxic appearance. HENT: Normocephalic, Atraumatic, Bilateral external ears have normal appearance, Nose appears normal, nares are patent. Eyes: PERRLA, EOMI, Conjunctiva normal, No discharge. Neck: Normal range of motion, No tenderness, Supple, No stridor. No cervical lymphadenopathy noted. Cardiovascular: Normal heart rate, Normal rhythm, No murmurs, No rubs, No gallops. Thorax & Lungs: Normal breath sounds, No respiratory distress, No wheezing, No chest tenderness to palpation. Abdomen: Bowel sounds normal, Soft, Nontender, No masses, No pulsatile masses. Skin: Warm, Dry, No erythema, No rash. Back: No tenderness, No CVA tenderness. Extremities: Intact distal pulses, No edema, No tenderness, No cyanosis, No clubbing. Musculoskeletal: Grossly normal strength in extremities Neurologic: Alert & oriented x 3, no gross focal neurological deficits Psychiatric: Affect normal, Judgment normal, Mood normal. Impression: -Perioperative Risk stratification -Atrial fibrillation, on Eliquis -Hypertension, well controlled -Moderate mitral regurgitation -Moderate tricuspid regurgitation Plan: -No signs/symptoms of decompensated heart failure. No signs/symptoms of ACS. -Patient reports chronic shortness of breath, but denies any chest pain -We will obtain EKG in clinic today -Given shortness of breath and valvular abnormality, will obtain echocardiogram to assess LVEF, valvular function -Given unknown functional status, will obtain Lexiscan myocardial perfusion imaging for perioperative risk stratification -Further recommendations to follow testing results -Continue Eliquis, metoprolo (more content not included)... [facility] Family History No Family History Records FoundNo Family History Records Found Advance Directives No Advanced Directives Records FoundNo Advanced Directives Records Found Additional Source Comments INFORMATION SOURCE (unrecogn ized section and content) DATE CREATED AUTHOR 10/25/2022 [facility] DATE CREATED AUTHOR AUTHOR'S JAIME REYES 08/26/2023 [facility] FOR RECORDS PERTAINING TO PATIENTS WHO ARE OR HAVE BEEN ENROLLED IN A CHEMICAL DEPENDENCY/SUBSTANCEABUSE PROGRAM, SOME INFORMATION MAY BE OMITTED. This clinical summary was aggregated from multiple sources. Caution should be exercised in using it in the provision of clinical care. This summary normalizes information from multiple sources, and as a consequence, information in this document may materially change the coding, format and clinical context of patient data. In addition, data may be omitted in some cases. CLINICAL DECISIONS SHOULD BE BASED ON THE PRIMARY CLINICAL RECORDS. [employer] provides no warranty or guarantee of the accuracy or completeness of information in this document.
--- NOTE | 2023-10-28 13:45 | CA_ITS ---
Patient Name: BLAISE JARA MR#: [id number] : 1945 Exam Date: 10/28/2023 Ordering Doctor: CRYSTAL COOL M.D. ECHOCARDIOGRAM REPORT PROCEDURE: CA ECHO DOPPLER COMPLETE INDICATIONS: Mitral valve regurgitation COMPARISON: None. DESCRIPTION: COMPLETE ECHOCARDIOGRAM Real-time transthoracic echocardiography with 2D, M-mode, spectral and color flow Doppler performed. QUALITY: 59 , 190#, BSA 1.80 m2 LEFT VENTRICLE: Normal chamber size. Thickened septal wall. Mild concentric left ventricular hypertrophy. Abnormal septal motion likely related to right ventricular pressure/volume overload. Normal systolic function. LV EF: Normal left ventricular ejection fraction, (55%). DIASTOLIC: Not adequately assessed due to heart rhythm. ATRIAL SEPTUM: Visually appears intact. LEFT ATRIUM: Severe dilatation. RIGHT ATRIUM: Severe dilatation. RIGHT VENTRICLE: Moderate dilatation. Normal systolic function. TRICUSPID VALVE: Normal mobility and thickness. No stenosis with moderate regurgitation. Doppler studies reveal severely (>60) elevated right sided pressures. RVSP 67 mmHg. MITRAL VALVE: Normal mobility and thickness. Mild mitral annular calcification. Moderate mitral regurgitation with an eccentric jet. AORTIC VALVE: Normal trileaflet appearance. Mildly calcified aortic valve. Normal leaflet mobility. Doppler velocity suggests no significant aortic valve stenosis. No aortic regurgitation. AORTIC ROOT: Normal diameter and appearance. PULMONIC VALVE: Normal thickness and mobility. No stenosis. No regurgitation. PERICARDIUM: No evidence of pericardial effusion. IVC: IVC is normal in size with no collapse. PLEURA: CONCLUSION: 1. Mild concentric left ventricular hypertrophy with normal systolic function. LVEF is 55%. 2. Moderately dilated right ventricle with normal systolic function. 3. Severe biatrial dilatation. 4. Moderate mitral and tricuspid regurgitation. 5. Severely elevated right-sided pressures. RVSP is 67 mmHg. Adult Echocardiography Procedure Report Left Ventricle LVEDD (3.7 - 5.6 cm): 3.65 cm LVESD (2.2 - 4.0 cm): 2.53 cm LVIVS thickness (0.6 - 1.2 cm): 1.13 cm LVPW thickness (0.5 - 1.0 cm): 1.38 cm LVOT Max Gradient: 1.87 mm[Hg] LVOT Area (cm2): 0.68 m/s Peak Velocity (LVOT): 0.68 m/s Mean Velocity (LVOT): 0.44 m/s LVOT Diameter 2.30 cm Left Atrium LA Volume Index (2D A2C): 38.11 ml/m2 Left Atrium Systolic Dimension: 4.99 cm Mitral Valve Mitral Valve E-Wave Peak Velocity: 1.31 m/s Right Ventricle Aorta AO Root Diam: 3.07 cm Ascending Ao Diam: 3.17 cm Aortic Valve AoV Area (Peak Kameron): 1.61 cm2, 1.73 cm2 AoV Area (VTI): 1.58 cm2, 1.71 cm2 Peak Velocity(Antegrade Flow): 1.64 m/s, 1.88 m/s Peak Gradient(Antegrade Flow): 10.75 mm[Hg], 14.19 mm[Hg] Mean Velocity(Antegrade Flow): 1.11 m/s, 1.25 m/s Mean Gradient(Antegrade Flow): 5.61 mm[Hg], 7.27 mm[Hg] Velocity Time Integral: 31.14 cm, 36.00 cm Tricuspid Valve Peak Velocity (Regurgitant Flow): 3.85 m/s, 3.76 m/s Pulmonic Valve Peak Velocity: 0.93 m/s Peak Gradient: 3.87 mm[Hg], 3.09 mm[Hg] Right Atrium Right Atrium Systolic Pressure: 66.89 ml, 66.89 ml Dictated by: Mateus Henning M.D. on 10/28/2023 at 18:49 Approved by: Mateus Henning M.D. on 10/28/2023 at 18:55
== END 2023-10-28 12:57 | disposition home or self-care (01) ==
LOC: CARD 12:57
PROVIDERS: PCP Family Medicine; Visit Provider Internal Medicine Cardiovascular Disease
DX: I34.0 Nonrheumatic mitral (valve) insufficiency (principal); I50.32 Chronic diastolic (congestive) heart failure
CPT/HCPCS: 93306

== ENCOUNTER 2023-10-28 12:59 | Outpatient (OUT) | payer MEDICARE, SELFPAY ==
--- OUTSIDE RECORDS SUMMARY | 2023-10-28 13:22 | XMS_ITS | CCD ---
Author Name Unknown Address [address] [place] [address] Organization [facility] Care Team Providers [facility] Associate Professor Name Role Phone REQUEST, DR NONE LISTED [...] (1 source) Penicillin Drug Allergy 10-14-2022 [facility] Repository (1 source) Penicillin; Translations: [PENICILLIN G] Drug Allergy 04-13-2023 [facility] Repository Problems Problem Classification Problem Date Documented [...] 10-25-2022 Chronic Other aftercare (1 source) Other senior living (current) drug therapy; Translations: [OTH [facility] CURRENT DRUG THERAPY] Onset: 10-25-2022 Episodic Other aftercare (1 source) halfway (current) use of anticoagulants; Translations: [[facility] CURRNT USE ANTICOAGULANTS] Onset: 10-25-2022 Episodic Other [...] BNP before her appt on 09/02/23. Thanks [facility] Prep for Procedureon 023 Prep for Procedure [id number] Blaise Toure 1945 Date Provider Department [place] 08/17/2023 ANGEL TIJERINA ROXANNE Steven . No family history on file [facility] 37on 08-16-2023 37 *Increase lasix to 80mg daily (2 tablets) *Weigh yourself daily. Write down your weights. We will call you in 1 week for readings. Bring in your readings to your next appt. *Watch your fluid intake. Try to not drink more than 2 liters a day. *Eat a low sodium diet. [facility] Office Visiton 08-16-2023 Follow-up visit [id number] Blaise Toure 1945 Date Provider Department [place] 08/16/2023 ANGEL TIJERINA Hos No family history on file Level of Service:47603 ND OFFICE/OUTPATIENT ESTABLISHED MOD MDM 30-39 MIN Reason for Visit and Comments: Congestive Heart Failure [127] [facility] Office Visiton 08-01-2023 Follow-up visit [id number] Blaise Toure 1945 Provider Department [facility] No family history on file Level of Service:70330 ND OFFICE/OUTPATIENT ESTABLISHED MOD MDM 30-39 MIN [facility] Office Visiton 05-02-2023 Follow-up visit [id number] Blaise Toure 1945 Date Provider Department [place] 05/02/2023 CRYSTAL OCONNELL Hos No family history on file Level of Service:44172 ND OFFICE/OUTPATIENT NEW MODERATE MDM 45-59 MINUTES Reason for Visit and Comments: Establish Care [42] - Surgical clearance (knee surgery - no date yet) Normal [facility] CBC AUTO DIFFon 10-15-2022 BASO # 0.1 103/ul Normal 0.0-0.1 [facility] [place] [facility] Comment on above: Performed By: #### C BC #### [facility] [address] [address] [address] Mahesh Bauer Basophils/100 WBC (Bld) 1.1 % Normal 0.2-2.0 [facility] [place] [facility] Comment on above: Performed By: #### C BC #### [facility] [address] [address] [address] Mahesh Bauer EO # 0.1 103/ul Normal 0.0-0.7 [facility] [place] [facility] Comment on above: Performed By: #### C BC #### [facility] [address] [place] [address] Dr. Mahesh Bauer Eosinophils/100 WBC (Bld) 1.6 % Normal 0.9-7.0 [facility] [place] [facility] Comment on above: Performed By: #### C BC #### [facility] [address] [place] [address] Dr. Mahesh Bauer Erythrocyte distribution width (RBC) [Ratio] 13.6 % Normal 11.0-15.0 [facility] [place] [facility] Comment on above: Performed By: #### C BC #### [facility] [address] [place] [address] Dr. Mahesh Bauer Hematocrit (Bld) [Volume fraction] 43.3 % Normal 36.0-48.0 [facility] [place] [facility] Comment on above: Performed By: #### C BC #### [facility] [address] [address] [address] Mahesh Bauer Hemoglobin (Bld) [Mass/Vol] 12.9 g/dL Normal 12.0-16.0 [facility] [place] [facility] Comment on above: Performed By: #### C BC #### [facility] [address] [place] [address] Dr. Mahesh Bauer IG # 0.03 10e3/ul Normal 0.00-0.03 [facility] [place] [facility] Comment on above: Performed By: #### C BC #### [facility] [address] [place] [address] Dr. Mahesh Bauer IG % 0.3 % Normal 0.0-0.5 [facility] [place] [facility] Comment on above: Performed By: #### C BC #### [facility] [address] [place] [address] Dr. Mahesh Bauer LYMPH # 1.8 103/ul Normal 1.2-3.8 [facility] Comment on above: Performed By: #### C BC #### [facility] [address] [place] [address] Dr. Mahesh Bauer Lymphocytes/100 WBC (Bld) 20.1 % Critically low 20.5-60.0 [facility] [place] [facility] Comment on above: Performed By: #### C BC #### [facility] [address] [place] [address] Dr. Mahesh Bauer MANUAL DIFF REQ NO Normal The [facility] Comment on above: Performed By: #### C BC #### [facility] [address] [place] [address] Dr. Mahesh Bauer MCH (RBC) [Entitic mass] 29.7 pg Normal 26.7-34.0 [facility] [place] [facility] Comment on above: Performed By: #### C BC #### [facility] [address] [place] [address] Dr. Mahesh Bauer MCHC (RBC) [Mass/Vol] 29.8 g/dL Critically low 29.9-35.2 [facility] Comment on above: Performed By: #### C BC #### [facility] [address] [place] [address] Dr. Mahesh Bauer MCV (RBC) [Entitic vol] 99.5 fL Critically high 81.0-99.0 [facility] Comment on above: Performed By: #### C BC #### [facility] [address] [place] [address] Dr. Mahesh Bauer MONO # 1.0 103/ul Critically high 0.3-0.8 [facility] Comment on above: Performed By: #### C BC #### [facility] [address] [place] [address] Dr. Mahesh Bauer Monocytes/100 WBC (Bld) 10.8 % Normal 1.7-12.0 [facility] [place] [facility] Comment on above: Performed By: #### C BC #### [facility] [address] [place] [address] Dr. Mahesh Bauer NEUT # 5.9 103/ul Normal 1.4-6.5 [facility] [place] [facility] Comment on above: Performed By: #### C BC #### [facility] [address] [place] [address] Dr. Mahesh Bauer Neutrophils/100 WBC (Bld) 66.1 % Normal 43.0-75.0 [facility] [place] [facility] Comment on above: Performed By: #### C BC #### [facility] [address] [place] [address] Dr. Mahesh Bauer Platelet mean volume (Bld) [Entitic vol] 9.2 fL Critically low 9.5-13.5 [facility] [place] [facility] Comment on above: Performed By: #### C BC #### [facility] [address] [place] [address] Dr. Mahesh Bauer PLT 283 103/ul Normal 150-450 [facility] Comment on above: Performed By: #### C BC #### [facility] [address] [place] [address] Dr. Mahesh Bauer RBC 4.35 106/ul Normal 4.20-5.40 [facility] Comment on above: Performed By: #### C BC #### [facility] [address] [place] [address] Dr. Mahesh Bauer WBC 8.9 103/ul Normal 4.0-11.0 [facility] Comment on above: Performed By: #### C BC #### [facility] [address] [place] [address] Dr. Mahesh Bauer ECHOCARDIO M/2D COMPLETEon 0 10-15-2022 ECHOCARDIO M/2D COMPLETE Patient: BLAISE TOURE Exam Date: 10/15/2022 : 1945 Gender:F Ordering : DR PRASANTH WILSON . Admission #: [id number] Family : Order #: [id number] CLICK HERE TO VIEW EXAM ECHOCARDIOGRAM REPORT [...] aortic valve stenosis. DVI 0.5, BART 1.9 [id number] aortic regurgitation. AORTIC ROOT: Normal diameter and [...] M.D. on 10/15/2022 at 17:16 Normal [facility] PROF CHEM 8 (BAS METB)on Anion gap [Moles/Vol] 10.8 mmol/L Normal [facility] Comment on above: Performed By: #### BRITT BONILLARO #### [facility] [address] [address] [address] Mahesh Bauer Calcium [Mass/Vol] 9.0 mg/dL Normal 8.5-10.1 [facility] Comment on above: Performed By: #### Alirio WIGGINS UMICRO #### [facility] [address] [address] [address] Mahesh Bauer Chloride [Moles/Vol] 95 mmol/L Critically low 98-107 [facility] [place] [facility] Comment on above: Performed By: #### Alirio WIGGINS UMTIMOTHYRO #### [facility] [address] [address] [address] Mahesh Bauer CO2 [Moles/Vol] 34.0 mmol/L Critically high 21.0-32.0 [facility] Comment on above: Performed By: #### BRITT BONILLARO #### [facility] [address] [address] [address] Mhaesh Bauer Creatinine [Mass/Vol] 0.86 mg/dL Normal 0.55-1.02 [facility] [place] [facility] Comment on above: Performed By: #### BRITT BONILLARO #### [facility] [address] [address] [address] Mahesh Bauer EGFR-AF ARMENIAN >60 Normal >=60 [facility] Comment on above: Performed By: #### BRITT BONILLARO #### [facility] [address] [place] [address] Dr. Mahesh Bauer EGFR-NON AF ARMENIAN >60 Normal >=60 [facility] Comment on above: Performed By: #### BRITT BONILLARO #### [facility] [address] [address] [address] Mahesh Bauer Glucose [Mass/Vol] 100 mg/dL Normal 74-106 [facility] Comment on above: Performed By: #### Alirio WIGGINS UMTIMOTHYRO #### [facility] [address] [place] [address] Dr. Mahesh Bauer Potassium [Moles/Vol] 2.8 mmol/L Critically low 3.5-5.1 [facility] Comment on above: Performed By: #### PONCHO BONILLA #### [facility] [address] [place] [address] Dr. Mahesh Bauer Sodium [Moles/Vol] 137 mmol/L Normal 136-145 [facility] Comment on above: Performed By: #### PONCHO BONILLA #### [facility] [address] [place] [address] Dr. Mahesh Bauer Urea nitrogen [Mass/Vol] 18.0 mg/dL Normal 7.0-18.0 [facility] Comment on above: Performed By: #### PONCHO BONILLA #### [facility] [address] [place] [address] Dr. Mahesh Bauer Urea nitrogen/Creatinine [Mass ratio] 20.9 mg/mg Normal [facility] Comment on above: Performed By: #### PONCHO BONILLA #### [facility] [address] [place] [address] Dr. Mahesh Bauer T4on 10-15-2022 T4 [Mass/Vol] 7.90 ug/dL Normal 4.80-13.90 [facility] Comment on above: Performed By: #### PONCHO BONILLA #### [facility] [address] [place] [address] Dr. Mahesh Bauer TSHon 10-15-2022 TSH 4.581 uIU/mL Critically high 0.358-3.740 [facility] Comment on above: Performed By: #### BRITT BONILLARO #### [facility] [address] [place] [address] Dr. Mahesh Bauer BNPon 10-14-2022 Natriuretic peptide B (Bld) [Mass/Vol] 1439.0 pg/mL Normal <=1,800.0 [facility] Comment on above: Performed By: #### C MP, HSTROPN, BNP #### [facility] [address] [place] [address] Dr. Mahesh Bauer CBC AUTO DIFFon 10-14-2022 BASO # 0.1 103/ul Normal 0.0-0.1 [facility] Comment on above: Performed By: #### C BC #### [facility] [address] [place] [address] Dr. Mahesh Bauer Basophils/100 WBC (Bld) 0.9 % Normal 0.2-2.0 [facility] Comment on above: Performed By: #### C BC #### [facility] [address] [address] [address] Mahesh Bauer EO # 0.1 103/ul Normal 0.0-0.7 [facility] Comment on above: Performed By: #### C BC #### [facility] [address] [place] [address] Dr. Mahesh Bauer Eosinophils/100 WBC (Bld) 0.8 % Critically low 0.9-7.0 [facility] Comment on above: Performed By: #### C BC #### [facility] [address] [place] [address] Dr. Mahesh Bauer Erythrocyte distribution width (RBC) [Ratio] 13.7 % Normal 11.0-15.0 [facility] Comment on above: Performed By: #### C BC #### [facility] [address] [place] [address] Dr. Mahesh Bauer Hematocrit (Bld) [Volume fraction] 46.7 % Normal 36.0-48.0 [facility] Comment on above: Performed By: #### C BC #### [facility] [address] [place] [address] Dr. Mahesh Bauer Hemoglobin (Bld) [Mass/Vol] 13.8 g/dL Normal 12.0-16.0 [facility] Comment on above: Performed By: #### C BC #### [facility] [address] [place] [address] Dr. Mahesh Bauer IG # 0.05 10e3/ul Critically high 0.00-0.03 [facility] Comment on above: Performed By: #### C BC #### [facility] [address] [place] [address] Dr. Mahesh Bauer IG % 0.5 % Normal 0.0-0.5 [facility] Comment on above: Performed By: #### C BC #### [facility] [address] [place] [address] Dr. Mahesh Bauer LYMPH # 1.7 103/ul Normal 1.2-3.8 [facility] Comment on above: Performed By: #### C BC #### [facility] [address] [place] [address] Dr. Mahesh Bauer Lymphocytes/100 WBC (Bld) 16.2 % Critically low 20.5-60.0 [facility] Comment on above: Performed By: #### C BC #### [facility] [address] [place] [address] Dr. Mahesh Bauer MANUAL DIFF REQ NO Normal [facility] Comment on above: Performed By: #### C BC #### [facility] [address] [place] [address] Dr. Mahesh Bauer MCH (RBC) [Entitic mass] 29.3 pg Normal 26.7-34.0 [facility] Comment on above: Performed By: #### C BC #### [facility] [address] [place] [address] Dr. Mahesh Bauer MCHC (RBC) [Mass/Vol] 29.6 g/dL Critically low 29.9-35.2 [facility] Comment on above: Performed By: #### C BC #### [facility] [address] [place] [address] Dr. Mahesh Bauer MCV (RBC) [Entitic vol] 99.2 fL Critically high 81.0-99.0 [facility] Comment on above: Performed By: #### C BC #### [facility] [address] [place] [address] Dr. Mahesh Bauer MONO # 0.8 103/ul Normal 0.3-0.8 [facility] Comment on above: Performed By: #### C BC #### [facility] [address] [place] [address] Dr. Mahesh Bauer Monocytes/100 WBC (Bld) 7.5 % Normal 1.7-12.0 [facility] Comment on above: Performed By: #### C BC #### [facility] [address] [place] [address] Dr. Mahesh Bauer NEUT # 7.8 103/ul Critically high 1.4-6.5 [facility] Comment on above: Performed By: #### C BC #### [facility] [address] [place] [address] Dr. Mahesh Bauer Neutrophils/100 WBC (Bld) 74.1 % Normal 43.0-75.0 [facility] Comment on above: Performed By: #### C BC #### [facility] [address] [place] [address] Dr. Mahesh Bauer Platelet mean volume (Bld) [Entitic vol] 9.5 fL Normal 9.5-13.5 [facility] Comment on above: Performed By: #### C BC #### [facility] [address] [place] [address] Dr. Mahesh Bauer PLT 291 103/ul Normal 150-450 [facility] Comment on above: Performed By: #### C BC #### [facility] [address] [place] [address] Dr. Mahesh Bauer RBC 4.71 106/ul Normal 4.20-5.40 [facility] Comment on above: Performed By: #### C BC #### [facility] [address] [place] [address] Dr. Mahesh Bauer WBC 10.5 103/ul Normal 4.0-11.0 [facility] Comment on above: Performed By: #### C BC #### [facility] [address] [place] [address] Dr. Mahesh Bauer CULTURE URINEon 10-14-2022 CULTURE URINE Culture Observations : NO GROWTH. Normal [facility] Comment on above: Performed By: #### U RCX #### [facility] [address] [place] [address] Dr. Mahesh Bauer [facility]20 SARS-CoV-2 (COVID-19) RNA MK+probe Ql (Unsp spec) Not detected Normal NOT DETECTED [facility] Comment on above: Result Comment: When [...] for this test is supported by the [place] of Health and Human Service's declaration that [...] used). Performed By: #### PONCHO BONILLA #### [facility] [address] [place] [address] Dr. Mahesh Bauer ER URINE PROFILEon 3 Bilirubin Ql (U) SMALL Abnormal NEGATIVE [facility] Comment on above: Performed By: #### PONCHO BONILLA #### [facility] [address] [place] [address] Dr. Mahesh Baeur Clarity (U) SL CLOUDY Abnormal CLEAR [facility] Comment on above: Performed By: #### PONCHO BONILLA #### [facility] [address] [place] [address] Dr. Mahesh Bauer Color (U) YELLOW Normal YELLOW [facility] Comment on above: Performed By: #### PONCHO BONILLA #### [facility] [address] [place] [address] Dr. Mahesh Bauer ERUAHD A micrscopic examination will be performed if indicated. Normal [facility] Comment on above: Performed By: #### PONCHO BONILLA #### [facility] [address] [place] [address] Dr. Mahesh Bauer Glucose Ql (U) Negative Normal NEGATIVE [facility] Comment on above: Performed By: #### Alirio WIGGINS UMICRO #### [facility] [address] [address] [address] Mahesh Bauer Hemoglobin Ql (U) LARGE Abnormal NEGATIVE [facility] Comment on above: Performed By: #### Alirio WIGGINS, UMICRO #### [facility] [address] [address] [address] Mahesh Bauer Ketones Ql (U) Negative Normal NEGATIVE [facility] Comment on above: Performed By: #### Alirio WIGGINS UMICRO #### [facility] [address] [place] [address] Dr. Mahesh Bauer LEUKOCYTES Negative Normal NEGATIVE [facility] Comment on above: Performed By: #### Alirio WIGGINS UMICRO #### [facility] [address] [place] [address] Dr. Mahesh Bauer Nitrite Ql (U) Negative Normal NEGATIVE [facility] Comment on above: Performed By: #### Alirio WIGGINS UMICRO #### [facility] [address] [place] [address] Dr. Mahesh Bauer pH (U) 5.5 [pH] Normal 5-9 [facility] Comment on above: Performed By: #### Alirio WIGGINS UMICRO #### [facility] [address] [place] [address] Dr. Mahesh Bauer SPEC GRAVITY 1.025 Normal 1.005-<=1.025 [facility] Comment on above: Performed By: #### Alirio WIGGINS UMICRO #### [facility] [address] [place] [address] Dr. Mahesh Bauer UA PROTEIN Negative Normal NEGATIVE/ TRACE [facility] Comment on above: Performed By: #### Alirio WIGGINS UMICRO #### [facility] [address] [place] [address] Dr. Mahesh Bauer UR MICRO IND INDICATED Normal [facility] Comment on above: Performed By: #### Alirio WIGGINS UMICRO #### [facility] [address] [place] [address] Dr. Mahesh Bauer Urobilinogen Qn (U) 1.0 {Terrie'U}/dL Normal 0.2 - 1. 0 [facility] Comment on above: Performed By: #### E PONCHO WIGGINS #### [facility] [address] [place] [address] Dr. Mahesh Bauer PROF 14(COMP METB)on 023 Albumin [Mass/Vol] 3.7 g/dL Normal 3.4-5.0 [facility] Comment on above: Performed By: #### C MP, HSTROPN, BNP #### [facility] [address] [place] [address] Dr. Mahesh Bauer Albumin/Globulin [Mass ratio] 0.9 {ratio} Normal [facility] Comment on above: Performed By: #### C MP, HSTROPN, BNP #### [facility] [address] [place] [address] Dr. Mahesh Bauer ALP [Catalytic activity/Vol] 85 U/L Normal 46-116 [facility] Comment on above: Performed By: #### C MP, HSTROPN, BNP #### [facility] [address] [place] [address] Dr. Mahesh Bauer ALT [Catalytic activity/Vol] 15 U/L Normal 14-59 [facility] Comment on above: Performed By: #### C MP, HSTROPN, BNP #### [facility] [address] [place] [address] Dr. Mahesh Bauer Anion gap [Moles/Vol] 12.6 mmol/L Normal [facility] Comment on above: Performed By: #### C MP, HSTROPN, BNP #### [facility] [address] [place] [address] Dr. Mahesh Bauer AST [Catalytic activity/Vol] 22 U/L Normal 15-37 [facility] Comment on above: Performed By: #### C MP, HSTROPN, BNP #### [facility] [address] [place] [address] Dr. Mahesh Bauer Bilirubin [Mass/Vol] 0.6 mg/dL Normal 0.2-1.0 [facility] Comment on above: Performed By: #### C MP, HSTROPN, BNP #### [facility] [address] [address] [address] Mahesh Bauer Calcium [Mass/Vol] 9.3 mg/dL Normal 8.5-10.1 [facility] Comment on above: Performed By: #### C MP, HSTROPN, BNP #### [facility] [address] [address] [address] Mahesh Bauer Chloride [Moles/Vol] 95 mmol/L Critically low 98-107 [facility] Comment on above: Performed By: #### C MP, HSTROPN, BNP #### [facility] [address] [address] [address] Mahesh Bauer CO2 [Moles/Vol] 32.1 mmol/L Critically high 21.0-32.0 [facility] Comment on above: Performed By: #### C MP, HSTROPN, BNP #### [facility] [address] [address] [address] Mahesh Bauer Creatinine [Mass/Vol] 1.03 mg/dL Critically high 0.55-1.02 [facility] Comment on above: Performed By: #### C MP, HSTROPN, BNP #### [facility] [address] [address] [address] Mahesh Bauer EGFR-AF ARMENIAN >60 Normal >=[address] [facility] Comment on above: Performed By: #### C MP, HSTROPN, BNP #### [facility] [address] [address] [address] Mahesh Bauer EGFR-NON AF ARMENIAN 52 mL/min/1.73m2 Critically low >=60 [facility] Comment on above: Performed By: #### C MP, HSTROPN, BNP #### [facility] [address] [address] [address] Mahesh Bauer Globulin (S) [Mass/Vol] 4.1 g/dL Normal [facility] Comment on above: Performed By: #### C MP, HSTROPN, BNP #### [facility] [address] [address] [address] Mahesh Bauer Glucose [Mass/Vol] 137 mg/dL Critically high 74-106 [facility] Comment on above: Performed By: #### C MP, HSTROPN, BNP #### [facility] [address] [address] [address] Mahesh Bauer Potassium [Moles/Vol] 3.7 mmol/L Normal 3.5-5.1 [facility] Comment on above: Performed By: #### C MP, HSTROPN, BNP #### [facility] [address] [place] [address] Dr. Mahesh Bauer Protein [Mass/Vol] 7.8 g/dL Normal 6.4-8.2 [facility] Comment on above: Performed By: #### C MP, HSTROPN, BNP #### [facility] [address] [place] [address] Dr. Mahesh Bauer Sodium [Moles/Vol] 136 mmol/L Normal 136-145 [facility] Comment on above: Performed By: #### C MP, HSTROPN, BNP #### [facility] [address] [place] [address] Dr. Mahesh Bauer Urea nitrogen [Mass/Vol] 18.0 mg/dL Normal 7.0-18.0 [facility] Comment on above: Performed By: #### C MP, HSTROPN, BNP #### [facility] [address] [place] [address] Dr. Mahesh Bauer Urea nitrogen/Creatinine [Mass ratio] 17.5 mg/mg Normal [facility] Comment on above: Performed By: #### C MP, HSTROPN, BNP #### [facility] [address] [place] [address] Dr. Mahesh Bauer TROPONIN, HIGH SENSITIVITYon 10-14-2022 HSTROP 43.6 pg/mL Normal 4.0-51.3 [facility] Comment on above: Result Comment: CUT- OFF POINTS HAVE BEEN ESTABLISHED BASED ON THE FOURTH UNIVERSAL DEFINITIONS OF MYOCARDIAL INFARCTION. THE UPPER REFERENCE LIMIT (URL) OF TROPONIN, DEFINED THE 99TH PERCENTILE OF cTnI DISTRIBUTION IN A REFERENCE POPULATION, HAS BEEN CONFIRMED THE DECISION THRESHOLD FOR CO DIAGNOSIS. Performed By: #### C MP, HSTROPN, BNP #### [facility] [address] [place] [address] Dr. Mahesh Bauer URINE MICROSCOPIC ONLYon BACTERIA TRACE Abnormal NONE SEEN [facility] Comment on above: Performed By: #### E FELICIANO, UMICRO #### [facility] [address] [place] [address] Dr. Mahesh Bauer Bacteria identified Cx Nom (U) INDICATED Normal [facility] Comment on above: Performed By: #### Alirio WIGGINS, UMICRO #### [facility] [address] [place] [address] Dr. Mahesh Bauer CAST NONE SEEN Normal NONE SEEN [facility] Comment on above: Performed By: #### Alirio WIGGINS, UMICRO #### [facility] [address] [place] [address] Dr. Mahesh Bauer Crystals LM Nom (Urine sed) NONE SEEN Normal NONE SEEN [facility] Comment on above: Performed By: #### Alirio WIGGINS UMICRO #### [facility] [address] [place] [address] Dr. Mahesh Bauer Epithelial cells LM Ql (Urine sed) FEW Abnormal NONE SEEN /RARE [facility] Comment on above: Performed By: #### Alirio WIGGINS UMICRO #### [facility] [address] [place] [address] Dr. Mahesh Bauer MUCOUS SMALL Abnormal NONE SEEN [facility] Comment on above: Performed By: #### Alirio WIGGINS UMICRO #### [facility] [address] [place] [address] Dr. Mahesh Bauer RBC 0-2 Normal 0-2 [facility] Comment on above: Performed By: #### Alirio WIGGINS, UMICRO #### [facility] [address] [place] [address] Dr. Mahesh Bauer WBC 5-10 Abnormal NONE SEEN [facility] Comment on above: Performed By: #### E PONCHO WIGGINS #### [facility] [address] [address] [address] Mahesh Bauer XR CHEST 1 Von [...] AMANDA TORRES Date: 2022-10-14 17:53 Normal [facility] Encounters Encounter Date Encounter Type Care Provider Facility Start: 08-16-2023 End: 08-16-2023 ambulatory ANGEL SERNA [facility] Start: 08-01-2023 End: 08-01-2023 ambulatory [facility] Start: 08-01-2023 End: 08-01-2023 [facility] Start: 05-02-2023 End: 05-02-2023 ambulatory [facility] Start: 10-14-2022 End: 10-15-[address] TESFAYE LISTED REQUEST Facility: Payers Date Payer Category Payer Medicare [id number] 1957 Medicare [id number] 1945 Unknown [id number] Progress note 08-16-2023 Note Date & Type Note Facility 08-16-2023 Note Patient here for 2 w orutsararmiut follow up medication change. Lasix was increased [...] All other systems reviewed and are negative. [facility] Progress note 08-16-2023 Note Date & Type Note Facility 08-16-2023 Note Cardiovascular Medic [facility] SUBJECTIVE Chief Complaint Patient [...] and at bedtime., Disp: , Rfl: HYDROcodone-acetaminophen ([place] [facility]) 5-325 mg tablet, Take 10 tablets by [...] 55, Na 136 (more content not included)... [facility] Progress note 08-01-2023 Note Date & Type [...] mg by mouth in the morning. HYDROcodone-acetaminophen ([facility]) 5-325 mg tablet Take 10 tablets by [...] weeks, or sooner (more content not included)... [facility] Progress note 08-01-2023 Note Date & Type [...] All other systems reviewed and are negative. [facility] Progress note 05-02-2023 Note Date & Type [...] mg by mouth in the morning. HYDROcodone-acetaminophen ([facility]) 5-325 mg tablet Take 10 tablets by [...] -Continue Eliquis, metoprolo (more content not included)... [facility] Summary Purpose Family History No Family History Records FoundNo Family History Records Found Advance Directives No Advanced Directives Records FoundNo Advanced Directives Records Found Additional Source Comments INFORMATION SOURCE (unrecogn ized section and content) DATE CREATED AUTHOR 10/25/2022 [facility] DATE CREATED AUTHOR AUTHOR'S JAIME REYES 08/26/2023 [facility] FOR RECORDS PERTAINING TO PATIENTS WHO ARE [...] BE BASED ON THE PRIMARY CLINICAL RECORDS. [email or web address] provides no warranty or guarantee of the accuracy or completeness of information in this document.
[2023-10-28 15:07] LABS: Anion Gap 11.8; BUN Creatinine Ratio 21.8; Calcium 8.4 mg/dL (8.5-10.1); Carbon Dioxide 28.2 mmol/L (21.0-32.0); Chloride 99 mmol/L (98-107); Estimated GFR (African America >60 (>=60); Estimated GFR (Non-African Ame >60 (>=60); Glucose 103 mg/dL (74-106); Sodium 135 mmol/L (136-145)
== END 2023-10-28 13:00 | disposition home or self-care (01) ==
LOC: LAB 13:01
PROVIDERS: PCP Family Medicine; Visit Provider Nurse Practitioner Family
DX: I50.32 Chronic diastolic (congestive) heart failure (principal)
CPT/HCPCS: 36415; 80048; 83880